=== PATIENT | female | born 1940 | race Caucasian/White ===

== ENCOUNTER 2017-06-22 12:03 | Emergency (ER) | payer MEDICARE ==
--- NOTE | 2017-06-22 13:19 | RADRPT ---
EXAM DATE/TIME: 06/22/2017 13:03 [place] COMPARISON: No previous studies available for comparison. INDICATIONS : Multiple lacerations both sides of right wrist to wrist due to cat bite to day MEDICAL HISTORY : Previous right wrist fracture. SURGICAL HISTORY : None. ENCOUNTER: Initial ACUITY: 1 day PAIN SCORE: 7/10 LOCATION: Right wrist FINDINGS: Deformity of the distal radius consistent with an old healed fracture. Osseous structures are otherwi se intact without evidence for acute bony fracture. Soft tissue prominence primarily in along the rad ial aspect of the wrist. No significance subcutaneous emphysema or radiopaque foreign bodies. Degener ative changes of the carpal metacarpal joints. CONCLUSION: 1. No acute fracture or dislocation. 2. Soft tissue prominence primarily overlying the radial aspect of the wrist without radiopaque forei gn body or significant subcutaneous emphysema. Chirag Corral MD on June 22, 2017 at 13:14 Board Certified Radiologist. This report was verified electronically.
[2017-06-22] MEDS ORDERED: TETANUS/DIPHTHERIA TOXOID ADULT 0.5 ML VIAL IM ONE (13:45)
[2017-06-22] MEDS ORDERED: AMOXICILLIN/CLAVULANATE K 875 MG TAB PO ONE (13:45)
[2017-06-22] MEDS ORDERED: AUGM875T3 PO (13:47)
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
[2017-06-22 14:10] VITALS: BP 116/74; PULSE 72; RESP 16; TEMP 98.2; O2SAT 98
== END 2017-06-22 14:13 | disposition home or self-care (01) ==
LOC: PHED 12:03
DX: S51.851A Open bite of right forearm, initial encounter (principal); W55.01XA Bitten by cat, initial encounter; I10 Essential (primary) hypertension; J44.9 Chronic obstructive pulmonary disease, unspecified
CPT/HCPCS: 73110; 90471; 90714